=== PATIENT | female | born 1955 | race Hispanic/Latino ===

== ENCOUNTER 2016-10-12 15:18 | Emergency (ER) | payer OTHER ==
[~2016-10-12] VITALS: Ht 149.9 cm; Wt 48.9 kg
[~2016-10-12 15:18] MED LIST: ADULT LOW DOSE81 M1 PO; ASPIR 8181 M1 PO; ASPIR-LOW81 MG PO; GLUCOPHAGE500 MG PO; GLUCOVANCE 51 TABLET PO; GLYBURIDE-METF1 EAC3 PO; METFORMIN HCL500 MG PO; TIZANIDINE HCL2 MG PO; TYLENOL EXTRA500 MG PO; ULTRAM50 MG PO
[2016-10-12 16:31] LABS: HEMATOCRIT 33.7 % (36.0-46.0); MCH 27.6 PG (29.0-34.0); MCHC 33.8 G/DL (30.0-36.0); MCV 81.6 FL (83-99); MEAN PLAT.VOLUME 11.3 uM^3 (9.5-12.4); PLATELET COUNT 274 K/uL (156-360); RBC DIS.WIDTH-CV 13.7 % (11.8-14.6); RBC DIS.WIDTH-SD 40.7 % (39-53); RED BLOOD COUNT 4.13 M/uL (3.80-5.20); WHITE BLOOD COUNT 8.8 K/uL (4.1-10.2)
[2016-10-12 16:40] LABS: CHLORIDE 106 mEq/L (99-109); POTASSIUM 4.1 mEq/L (3.7-5.4); SODIUM 139 mEq/L (136-147)
[2016-10-12 16:42] LABS: GLUCOSE 159 mg/dL (70-99)
[2016-10-12 16:44] LABS: ANION GAP 10 MEQ/L (2-14); TOTAL BILIRUBIN 0.1 mg/dL (0.0-1.0)
[2016-10-12 16:46] LABS: ALKALINE PHOSPHATASE 85 IU/L (3-129); GFR ESTIMATE (CALCULATED) > 59 mL/min/
[2016-10-12 16:47] LABS: UREA NITROGEN (BUN) 16 mg/dL (9-23)
[2016-10-12 16:49] LABS: ADD MIUA? NO; BILIRUBIN NEGATIVE; BLOOD NEGATIVE; COLOR COLORLESS ((YELLOW)); GLUCOSE (STRIP) NEGATIVE; KETONES NEGATIVE; LEUKOCYTES NEGATIVE; NITRITE NEGATIVE; PROTEIN (STRIP) NEGATIVE; SPECIFIC GRAVITY 1.003 (1.000-1.030); UCUL ADDED? NO; UROBILINOGEN 0.2 MG/DL (0.2-1.0)
[2016-10-12 18:40] LABS: POINT-OF-CARE METER ID UU13113800
[2016-10-12 19:21] VITALS: BP 142/87
[2016-10-12 19:30] LABS: POINT-OF-CARE METER ID UU13113800
== END 2016-10-12 19:29 | disposition home or self-care (01) ==
LOC: EME 15:18
PROVIDERS: Emergency Medicine
DX: R10.31 Right lower quadrant pain (principal); K64.9 Unspecified hemorrhoids; M79.604 Pain in right leg; E11.9 Type 2 diabetes mellitus without complications
CPT/HCPCS: 74177; 80053; 81003; 82948; 85027; 99281; 99285; J7040

== ENCOUNTER 2017-04-13 15:39 | Observation (INO) | payer OTHER ==
[~2017-04-13] VITALS: Ht 149.9 cm; Wt 50.0 kg
[2017-04-13 16:11] LABS: HEMATOCRIT 35.1 % (36.0-46.0); MCH 27.3 PG (29.0-34.0); MCHC 33.3 G/DL (30.0-36.0); MCV 81.8 FL (83-99); MEAN PLAT.VOLUME 11.7 uM^3 (9.5-12.4); PLATELET COUNT 231 K/uL (156-360); RBC DIS.WIDTH-CV 13.5 % (11.8-14.6); RBC DIS.WIDTH-SD 40.3 % (39-53); RED BLOOD COUNT 4.29 M/uL (3.80-5.20); WHITE BLOOD COUNT 7.2 K/uL (4.1-10.2)
[2017-04-13 16:27] LABS: CHLORIDE 105 mEq/L (99-109); POTASSIUM 4.2 mEq/L (3.7-5.4); SODIUM 140 mEq/L (136-147)
[2017-04-13 16:28] LABS: GLUCOSE 194 mg/dL (70-99)
[2017-04-13 16:30] LABS: ANION GAP 10 MEQ/L (2-14)
[2017-04-13 16:32] LABS: GFR ESTIMATE (CALCULATED) > 59 mL/min/
[2017-04-13 16:33] LABS: UREA NITROGEN (BUN) 16 mg/dL (9-23)
[2017-04-13 16:37] LABS: TROP-I INTERPRETATION NEGATIVE; TROPONIN-I < 0.01 ng/mL (0.0-0.30)
[2017-04-13] MEDS ORDERED: ASPIR 8181 M1 PO (17:37)
[2017-04-13] MEDS ORDERED: TYLENOL EXTRA500 MG PO (17:38)
[2017-04-13] MEDS ORDERED: NESINA25 MG PO (17:38)
[2017-04-13 20:55] VITALS: BP 118/54
[2017-04-13 21:12] LABS: POINT-OF-CARE METER ID UU13113700
[2017-04-13 22:24] LABS: D-DIMER ELISA < 150.00 ng/mLDDU (<230)
[2017-04-14 01:16] LABS: TROP-I INTERPRETATION NEGATIVE; TROPONIN-I < 0.01 ng/mL (0.0-0.30)
[2017-04-14 03:40] VITALS: BP 85/47
[2017-04-14 05:59] LABS: HEMATOCRIT 32.2 % (36.0-46.0); MCH 28.4 PG (29.0-34.0); MCHC 34.2 G/DL (30.0-36.0); MEAN PLAT.VOLUME 12.1 uM^3 (9.5-12.4); PLATELET COUNT 206 K/uL (156-360); RBC DIS.WIDTH-CV 13.7 % (11.8-14.6); RBC DIS.WIDTH-SD 41.5 % (39-53); RED BLOOD COUNT 3.88 M/uL (3.80-5.20); WHITE BLOOD COUNT 6.5 K/uL (4.1-10.2)
[2017-04-14 06:13] LABS: ANION GAP 5 MEQ/L (2-14); CHLORIDE 108 MEQ/L (99-109); GFR ESTIMATE (CALCULATED) > 59 mL/min/; GLUCOSE 123 mg/dL (70-99); POTASSIUM 4.4 MEQ/L (3.7-5.4); SAMPLE HEMOLYSIS CHECK 0; SAMPLE ICTERIC CHECK 0; SAMPLE LIPEMIA CHECK 0; SODIUM 141 MEQ/L (136-147); UREA NITROGEN (BUN) 17 mg/dL (9-23)
[2017-04-14 06:17] VITALS: BP 95/47
[2017-04-14 06:19] LABS: TROP-I INTERPRETATION NEGATIVE; TROPONIN-I < 0.01 ng/mL (0.0-0.30)
[2017-04-14 07:34] VITALS: BP 101/53
[2017-04-14 11:00] VITALS: BP 121/56
[2017-04-14 12:01] LABS: POINT-OF-CARE METER ID UU13113700
[2017-04-14 16:48] LABS: POINT-OF-CARE METER ID UU13113700
[2017-04-14 16:52] VITALS: BP 99/55
[2017-04-14] MEDS ORDERED: IBUPROFEN600 MG PO (17:26)
== END 2017-04-14 19:20 | disposition home or self-care (01) ==
LOC: EME 15:39 → EDOF 18:08 → 5WEST 18:08 → EDOF 18:08 → ENRESERV 18:09 → 5WEST 20:44
PROVIDERS: Hospitalist
DX: R07.9 Chest pain, unspecified (principal); I10 Essential (primary) hypertension; E11.9 Type 2 diabetes mellitus without complications; M19.90 Unspecified osteoarthritis, unspecified site; Z82.49 Family history of ischemic heart disease and other diseases of the circulatory system; Z83.3 Family history of diabetes mellitus; Z80.9 Family history of malignant neoplasm, unspecified; Z91.010 Allergy to peanuts; Z88.0 Allergy status to penicillin; Z79.4 Long term (current) use of insulin
CPT/HCPCS: 71020; 80048; 82948; 84484; 85027; 85379; 93005; 99281; 99285; G0378; J1650; J1815; J2270

== ENCOUNTER 2017-10-06 09:34 | Emergency (ER) | payer OTHER ==
[~2017-10-06] VITALS: Ht 149.9 cm; Wt 47.2 kg
[~2017-10-06 09:34] MED LIST changes: +IBUPROFEN600 MG PO; +NESINA25 MG PO
[2017-10-06 11:19] VITALS: BP 150/83
== END 2017-10-06 11:20 | disposition home or self-care (01) ==
LOC: EME 09:34
DX: S83.92XA Sprain of unspecified site of left knee, initial encounter (principal); X50.9XXA Other and unspecified overexertion or strenuous movements or postures, initial encounter; E11.9 Type 2 diabetes mellitus without complications; Z79.84 Long term (current) use of oral hypoglycemic drugs; Z79.82 Long term (current) use of aspirin; Z88.0 Allergy status to penicillin
CPT/HCPCS: 73564; 99281; 99283

== ENCOUNTER 2017-11-29 11:08 | Emergency (ER) | payer OTHER ==
[~2017-11-29] VITALS: Ht 149.9 cm; Wt 47.6 kg
[2017-11-29] MEDS ORDERED: MOTRIN400 MG PO (13:40)
[2017-11-29 14:37] VITALS: BP 131/71
== END 2017-11-29 14:38 | disposition home or self-care (01) ==
LOC: TRA 11:08
DX: S20.219A Contusion of unspecified front wall of thorax, initial encounter (principal); V49.50XA Passenger injured in collision with unspecified motor vehicles in traffic accident, initial encounter; Y92.410 Unspecified street and highway as the place of occurrence of the external cause; E11.9 Type 2 diabetes mellitus without complications; Z79.84 Long term (current) use of oral hypoglycemic drugs; Z79.82 Long term (current) use of aspirin; Z88.0 Allergy status to penicillin; Z91.010 Allergy to peanuts
CPT/HCPCS: 71046; 99281; 99284

== ENCOUNTER 2017-12-06 11:17 | Emergency (ER) | payer OTHER ==
[~2017-12-06] VITALS: Ht 149.9 cm; Wt 45.3 kg
[~2017-12-06 11:17] MED LIST changes: +MOTRIN400 MG PO
[2017-12-06 13:07] VITALS: BP 140/80
[2017-12-06] MEDS ORDERED: FLEXERIL10 MG PO (14:32)
== END 2017-12-06 14:45 | disposition home or self-care (01) ==
LOC: EME 11:17
DX: M62.838 Other muscle spasm (principal); M62.830 Muscle spasm of back; S20.219A Contusion of unspecified front wall of thorax, initial encounter; R51 Headache; V49.9XXA Car occupant (driver) (passenger) injured in unspecified traffic accident, initial encounter; Y92.410 Unspecified street and highway as the place of occurrence of the external cause; E11.9 Type 2 diabetes mellitus without complications; Z79.84 Long term (current) use of oral hypoglycemic drugs; Z79.82 Long term (current) use of aspirin; Z88.0 Allergy status to penicillin
CPT/HCPCS: 70450; 71100; 72125; 72131; 99281; 99284